=== PATIENT | male | born 1945 | race Caucasian/White ===

== ENCOUNTER → 2022-11-28 13:24 | Outpatient (CLI) | payer OTHER, SELFPAY ==
--- NOTE | 2022-11-28 | DI.MRI.S_ITS ---
PROCEDURE: MR LUMBAR SPINE WO CON INDICATIONS: Spinal stenosis, lumbar region TECHNIQUE: Noncontrast sagittal T1 spin echo and T2 fast echo, sagittal STIR, and T2 fast spin echo through the lumbar spine. In cases with scoliosis, additional coronal T2 fast spin echo may be performed. COMPARISON: [facility], MR, MR LUMBAR SPINE WITH/WITHOUT CONTRAST, 12/21/2019, 12:25. FINDINGS: Image quality: Excellent. Alignment and Curvature: There is normal bony alignment. Bone Marrow: Marrow is of normal overall signal. No acute vertebral body compression fractures. Spinal Cord: Conus medullaris terminates at the T12-L1 level. Visualized cord demonstrates normal signal and size. Paraspinous Soft Tissues: No paravertebral masses. T12-L1: Slight increase in a minimal disc bulge. Mild facet hypertrophy. No canal stenosis or foraminal stenosis. L1-L2: No significant change. Disc bulge. Facet and ligament hypertrophy. [id number] canal stenosis. Mild left and moderate right foraminal narrowing. L2-L3: Slight interval progression. Disc bulge and facet and ligament hypertrophy are again noted to result in severe canal stenosis, which is slightly greater than previously. Mild bilateral foraminal narrowing. L3-L4: Slight interval progression. Disc bulge and prominent facet and ligament hypertrophy. Previous severe canal stenosis is now increased, severe or marked period [id number] bilateral foraminal narrowing. L4-L5: Disc bulge. Facet hypertrophy. Mild canal stenosis. Mild bilateral foraminal narrowing. L5-S1: Disc bulge. Facet hypertrophy. No significant canal stenosis or foraminal stenosis. IMPRESSION: 1. Interval progression at L2-L3 and L3-L4. There is increased severe canal stenosis at L2-L3 and increased, severe/marked canal stenosis at L3-L4. Dictated by: Edson Bauman M.D. on 11/28/2022 at 14:59 Approved by: Edson Bauman M.D. on 11/28/2022 at 15:04
== END ==
PROVIDERS: PCP Family Medicine; Referring Provider Orthopaedic Surgery Orthopaedic Surgery of the Spine; Visit Provider Orthopaedic Surgery Orthopaedic Surgery of the Spine
DX: M48.062 Spinal stenosis, lumbar region with neurogenic claudication (principal)
CPT/HCPCS: 72148

== ENCOUNTER → 2022-12-18 13:33 | Outpatient (CLI) | payer OTHER, SELFPAY ==
--- NOTE | 2022-12-18 13:36 | DI.CT.S_ITS ---
PROCEDURE: CT LUMBAR SPINE WO CON INDICATIONS: Spinal stenosis, lumbar region TECHNIQUE: Noncontrast 3 mm thick sections acquired from the T12 level to the sacrum. Sagittal and coronal reformats were constructed. For radiation dose reduction, the following was used: automated exposure control. COMPARISON: None. FINDINGS: Image quality: Excellent. Bones: There is trace L4 on L5 retrolisthesis. Moderate to severe degenerative changes are present throughout the lumbar spine including osteophytosis, endplate sclerosis, and multilevel Schmorl's nodes. No compression deformities. T12-L1: Moderate disc desiccation and height loss. No canal stenosis. No foraminal stenosis. L1-L2: Moderate disc desiccation and height loss. Broad-based disc bulge. No canal stenosis. Moderate bilateral foraminal stenosis. L2-L3: Moderate disc desiccation and height loss. Moderate facet ligamentum flavum hypertrophy. Moderate to severe canal stenosis. Mild bilateral foraminal stenosis. L3-L4: Mild disc desiccation and height loss. Broad-based disc bulge. Severe facet and ligamentum flavum hypertrophy. Severe canal stenosis. Mild bilateral neural foraminal stenosis. L4-L5: Severe disc desiccation and height loss. Vacuum disc phenomenon. Reactive endplate changes. Patient is status post laminectomy. No canal stenosis. Moderate right and severe left foraminal stenosis. L5-S1: Mild disc desiccation and height loss. Broad-based disc bulge. Patient is status post left hemilaminectomy. No canal stenosis. Mild to moderate bilateral foraminal stenosis. Soft tissues: No retroperitoneal masses or hematomas. Visualized aorta is normal in caliber. IMPRESSION: 1. Moderate to severe degenerative changes throughout the lumbar spine most severe at L4-5 where there is severe intervertebral disc space narrowing, reactive endplate changes and vacuum disc phenomenon. 2. Broad-based disc bulges and facet and ligamentum flavum hypertrophy with resultant moderate canal stenosis at L2-3 and severe canal stenosis at L3-4. 3. Moderate bilateral foraminal stenosis at L1-2, moderate bilateral foraminal stenosis at L5-S1, and moderate right foraminal stenosis at L4-5. Dictated by: Fiona Duron M.D. on 12/19/2022 at 9:26 Approved by: Fiona Duron M.D. on 12/19/2022 at 9:38
== END ==
PROVIDERS: PCP Family Medicine; Referring Provider Orthopaedic Surgery Orthopaedic Surgery of the Spine; Visit Provider Orthopaedic Surgery Orthopaedic Surgery of the Spine
DX: M48.062 Spinal stenosis, lumbar region with neurogenic claudication (principal); M48.07 Spinal stenosis, lumbosacral region; M47.816 Spondylosis without myelopathy or radiculopathy, lumbar region; M51.36 Other intervertebral disc degeneration, lumbar region; M51.37 Other intervertebral disc degeneration, lumbosacral region
CPT/HCPCS: 72131